=== PATIENT | female | born 2000 | race Hispanic/Latino ===

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

== ENCOUNTER 2019-02-10 12:01 | Emergency (ER) | payer OTHER ==
[2019-02-10] MEDS ORDERED: ACETAMINOPHEN EXTRA STRENGTH 500 MG TABLET ONE (12:30)
[2019-02-10 12:49] LABS: BASOPHILS % (AUTO) 0.1 % (0.0-5.0); EOSINOPHILS % (AUTO) 0.1 % (0.0-8.0); HEMATOCRIT 34.4 % (36-48); LYMPHOCYTES % (AUTO) 12.7 % (21.0-51.0); MEAN CORPUSCULAR HEMOGLOBIN 27.7 pg (27.0-33.0); MEAN CORPUSCULAR HGB CONC 33.1 g/dL (32.0-36.0); MEAN CORPUSCULAR VOLUME 83.5 fL (80-100); MONOCYTES % (AUTO) 12.1 % (3.0-13.0); NEUTROPHILS % (AUTO) 74.5 % (40.0-77.0); PLATELET COUNT (AUTO) 209 K/uL (130-400); RED BLOOD CELL COUNT(AUTO) 4.12 MIL/uL (4.00-5.50); RED CELL DISTRIBUTION WIDTH 15.2 % (11.0-15.5); WHITE BLOOD COUNT (AUTO) 10.3 K/uL (4.8-10.8)
[2019-02-10 13:00] LABS: RAPID GROUP A STREP NEGATIVE (NEGATIVE)
[2019-02-10 13:03] LABS: CREATININE 0.7 mg/dL (0.5-1.5); POTASSIUM 3.4 mmol/L (3.5-5.1)
[2019-02-10 13:06] LABS: ALBUMIN 3.5 g/dL (3.5-5.0); BILIRUBIN,TOTAL 0.5 mg/dL (0.2-1.0); TOTAL PROTEIN, SERUM 8.1 g/dL (6.0-8.3)
[2019-02-10] MEDS ORDERED: CLINDAMYCIN 900 MG/D5% WATER 50 ML IV ONE (15:23)
[2019-02-10] MEDS ORDERED: SODIUM CHLORIDE 0.9% 1000ML 1,000 ML IV ONE (15:24)
[2019-02-10] MEDS ORDERED: LIDOCAINE HCL-MPF 1% 2ML VIAL ONE (16:36)
[2019-02-10] MEDS ORDERED: CEFTRIAXONE SODIUM 500 MG VIAL ONE (16:36)
[2019-02-10] MEDS ORDERED: AZITHROMYCIN 250 MG TABLET PO ONE (16:37)
[2019-02-10] MEDS ORDERED: ONDANSETRON ODT 4 MG TAB ONE (16:38)
== END 2019-02-10 17:14 | disposition home or self-care (01) ==
LOC: EDH 12:01
DX: J02.8 Acute pharyngitis due to other specified organisms (principal); Z11.3 Encounter for screening for infections with a predominantly sexual mode of transmission; R11.2 Nausea with vomiting, unspecified; J45.909 Unspecified asthma, uncomplicated
CPT/HCPCS: 36415; 71045; 80053; 81025; 85025; 86308; 87070; 87076; 87077 ×2; 87186 ×2; 87804 ×2; 87880; 93005; 96365; 96372; 99285; J0696; J3490 ×2; J7030

== ENCOUNTER 2021-08-06 17:51 | Emergency (ER) | payer BC, OTHER ==
[~2021-08-06] VITALS: Ht 157.5 cm; Wt 86.2 kg
[2021-08-06 18:21] LABS: BASOPHILS % (AUTO) 0.1 % (0.0-5.0); EOSINOPHILS % (AUTO) 1.4 % (0.0-8.0); HEMATOCRIT 43.7 % (36-48); LYMPHOCYTES % (AUTO) 6.9 % (21.0-51.0); MEAN CORPUSCULAR HEMOGLOBIN 27.7 pg (27.0-33.0); MEAN CORPUSCULAR VOLUME 84.2 fL (79-99); MONOCYTES % (AUTO) 4.7 % (3.0-13.0); NEUTROPHILS % (AUTO) 86.6 % (40.0-77.0); PLATELET COUNT (AUTO) 234 K/uL (130-400); RED BLOOD CELL COUNT(AUTO) 5.19 MIL/uL (4.00-5.50); RED CELL DISTRIBUTION WIDTH 14.5 % (11.0-15.5); WHITE BLOOD COUNT (AUTO) 9.3 K/uL (4.8-10.8)
[2021-08-06 18:22] LABS: APPEARANCE,URINE Cloudy (CLEAR); BILIRUBIN,URINE Negative (NEGATIVE); COLOR,URINE Yellow (YELLOW); GLUCOSE, URINE (UA) Negative (NEGATIVE); KETONES,URINE >=80 mg/dL (NEGATIVE); LEUKOCYTE ESTERASE ,URINE Negative (NEGATIVE); NITRATE,URINE Negative (NEGATIVE); OCCULT BLOOD,URINE Negative (NEGATIVE); PROTEIN,URINE POS 1+ mg/dL (NEGATIVE)
[2021-08-06 18:25] LABS: HCG,QUAL RESULT NEGATIVE (NEGATIVE)
[2021-08-06] MEDS ORDERED: MORPHINE 2 MG SYG IVP ONE (18:30)
[2021-08-06] MEDS ORDERED: ONDANSETRON 4MG INJ IVP ONE (18:30)
[2021-08-06 18:32] LABS: CREATININE 0.6 mg/dL (0.5-1.5); POTASSIUM 3.8 mmol/L (3.5-5.1)
[2021-08-06 18:38] LABS: ALBUMIN 4.3 g/dL (3.5-5.0); BILIRUBIN,TOTAL 0.4 mg/dL (0.2-1.0); TOTAL PROTEIN, SERUM 8.6 g/dL (6.0-8.3)
[2021-08-06 18:41] LABS: BACTERIA,URINE Few /HPF (None Seen); MUCUS,URINE Few LPF (None Seen); SQUAMOUS EPITHELIAL CELL,UR Many /HPF (0-2)
[2021-08-06] MEDS ORDERED: FAMO-136 PO (19:02)
[2021-08-06] MEDS ORDERED: DICY20TA2 PO (19:02)
[2021-08-06] MEDS ORDERED: ONDA4TAB10 PO (19:07)
[2021-08-06 19:20] VITALS: BP 117/68
== END 2021-08-06 19:32 | disposition home or self-care (01) ==
LOC: EDH 17:51
DX: A08.4 Viral intestinal infection, unspecified (principal)
CPT/HCPCS: 36415; 74176; 80053; 81001; 81025; 83690; 84484; 85025; 96374; 96375; 99284; J2405

== ENCOUNTER 2021-09-07 21:12 | Emergency (ER) | payer BC ==
[~2021-09-07] VITALS: Ht 157.5 cm; Wt 86.2 kg
[~2021-09-07 21:12] MED LIST: DICY20TA2 PO; FAMO-136 PO; ONDA4TAB10 PO
[2021-09-07 21:22] VITALS: BP 130/78
[2021-09-07] MEDS ORDERED: 0.9%NACL 1000ML 1,000 ML IV SCH (21:30)
[2021-09-07] MEDS ORDERED: IBUPROFEN 800 MG TAB PO ONE (21:30)
[2021-09-07] MEDS ORDERED: ACETAMINOPHEN 500 MG TABLET PO ONE (21:30)
[2021-09-07 21:50] LABS: APPEARANCE,URINE CLEAR (CLEAR); BILIRUBIN,URINE NEGATIVE (NEGATIVE); COLOR,URINE YELLOW (YELLOW); GLUCOSE, URINE (UA) NEGATIVE (NEGATIVE); KETONES,URINE NEGATIVE (NEGATIVE); LEUKOCYTE ESTERASE ,URINE NEGATIVE (NEGATIVE); NITRATE,URINE NEGATIVE (NEGATIVE); OCCULT BLOOD,URINE NEGATIVE (NEGATIVE); PH,URINE 8.5 (5.0-8.0); PROTEIN,URINE 30 mg/dL (NEGATIVE)
[2021-09-07 21:55] LABS: HCG,QUAL RESULT NEGATIVE (NEGATIVE)
[2021-09-07 21:57] LABS: BACTERIA,URINE Few /HPF (None Seen); MUCUS,URINE Rare LPF (None Seen); RBC,URINE 0-1 /HPF (0-1); SQUAMOUS EPITHELIAL CELL,UR Rare /HPF (0-2); WBC,URINE 0-1 /HPF (0-1)
[2021-09-07 22:02] LABS: BASOPHILS % (AUTO) 0.3 % (0.0-5.0); EOSINOPHILS % (AUTO) 0.4 % (0.0-8.0); HEMATOCRIT 38.5 % (36-48); LYMPHOCYTES % (AUTO) 10.4 % (21.0-51.0); MEAN CORPUSCULAR HEMOGLOBIN 26.8 pg (27.0-33.0); MEAN CORPUSCULAR HGB CONC 32.2 g/dL (32.0-36.0); MEAN CORPUSCULAR VOLUME 83.3 fL (79-99); MONOCYTES % (AUTO) 3.4 % (3.0-13.0); PLATELET COUNT (AUTO) 204 K/uL (130-400); RED BLOOD CELL COUNT(AUTO) 4.62 MIL/uL (4.00-5.50); RED CELL DISTRIBUTION WIDTH 15.1 % (11.0-15.5); WHITE BLOOD COUNT (AUTO) 11.1 K/uL (4.8-10.8)
[2021-09-07 22:11] LABS: CREATININE 0.7 mg/dL (0.5-1.5); POTASSIUM 3.6 mmol/L (3.5-5.1)
[2021-09-07 22:16] LABS: ALBUMIN 3.9 g/dL (3.5-5.0); CRP QUANTITATIVE 45.3 mg/L (0.00-9.0); TOTAL PROTEIN, SERUM 8.1 g/dL (6.0-8.3)
[2021-09-07] MEDS ORDERED: ACET-2247 PO (22:32)
[2021-09-07] MEDS ORDERED: IBUP-2071 PO (22:32)
[2021-09-07] MEDS ORDERED: D-ME1POW16 PO (22:32)
== END 2021-09-07 22:40 | disposition home or self-care (01) ==
LOC: EDH 21:12
DX: B34.9 Viral infection, unspecified (principal); J02.8 Acute pharyngitis due to other specified organisms; E86.0 Dehydration; R50.9 Fever, unspecified; Z20.822 Contact with and (suspected) exposure to COVID-19; Z79.899 Other long term (current) drug therapy
CPT/HCPCS: 99283; 96360; 71045; 87635; 80053; 85025; 87040 ×2; 87880; 87804 ×2; 83605; 86140; 81001; 81025; 36415; C9803; J7030

== ENCOUNTER 2024-10-14 11:00 | Emergency (ER) | payer OTHER, BC ==
[~2024-10-14] VITALS: Ht 157.5 cm; Wt 86.2 kg
[~2024-10-14 11:00] MED LIST changes: +ACET-2247 PO; +D-ME1POW16 PO; +IBUP-2071 PO; +ONDA-243 PO; -ONDA4TAB10 PO
[2024-10-14] MEDS ORDERED: IOHEXOL-350 75 ML VIAL IV ONE (11:12)
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
[2024-10-14 11:42] LABS: IMMATURE GRANULOCYTE ABSOLUTE 0.04 K/uL (0-1); NUCLEATED RED BLOOD CELLS 0.0 % (0.0-0.19); PLATELET COUNT (AUTO) 245 K/uL (130-400); RED BLOOD CELL COUNT(AUTO) 4.34 MIL/uL (4.00-5.50); RED CELL DISTRIBUTION WIDTH 15.7 % (11.0-15.5); WHITE BLOOD COUNT (AUTO) 10.3 K/uL (4.8-10.8)
[2024-10-14 11:51] LABS: CREATININE 0.6 mg/dL (0.5-1.0); GLOMERULAR FILTR. RATE CALC 128.0 mL/min (>90); GLUCOSE,RANDOM 117.0 mg/dL (70-105); SODIUM SERUM 137.0 mmol/L (136-145); UREA NITROGEN, BLOOD 12.0 mg/dL (7-18)
[2024-10-14 12:02] LABS: HCG,QUANTITATIVE 0.0 mIU/mL (0-5)
[2024-10-14 12:33] LABS: APPEARANCE,URINE CLEAR (CLEAR); GLUCOSE, URINE (UA) NEGATIVE (NEGATIVE); LEUKOCYTE ESTERASE ,URINE NEGATIVE Leu/uL (NEGATIVE); NITRATE,URINE NEGATIVE (NEGATIVE); OCCULT BLOOD,URINE NEGATIVE (NEGATIVE)
[2024-10-14 12:35] LABS: ADD UA MICROSCOPIC YES
[2024-10-14 12:43] LABS: SQUAMOUS EPITHELIAL CELL,UR FEW /HPF (0-2)
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
[2024-10-14] MEDS ORDERED: CYCL10TA16 PO (12:55)
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
[2024-10-14 13:17] VITALS: BP 138/90; PULSE 79; RESP 18; TEMP 98.8; O2SAT 99
== END 2024-10-14 13:19 | disposition home or self-care (01) ==
LOC: EDH 11:00
DX: S40.022A Contusion of left upper arm, initial encounter (principal); E66.9 Obesity, unspecified; J45.909 Unspecified asthma, uncomplicated; Z68.34 Body mass index [BMI] 34.0-34.9, adult; V89.2XXA Person injured in unspecified motor-vehicle accident, traffic, initial encounter; Y93.89 Activity, other specified; Y92.89 Other specified places as the place of occurrence of the external cause; Y99.8 Other external cause status
CPT/HCPCS: 99285; 74177; 71045; 80048; 84702; 85025; 81001; 36415; Q9967